=== PATIENT | female | born 2005 | race Caucasian/White ===

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

== ENCOUNTER → 2024-06-05 | Outpatient (CLI) | payer OTHER ==
[2024-06-05 13:25] LABS: HEMATOCRIT 38.3 % (36.0-47.0); HEMOGLOBIN 12.4 g/dl (12.0-15.5); MEAN CORPUSCULAR HEMOGLOBIN 27.6 pg (27.0-33.0); MEAN CORPUSCULAR HGB CONC 32.4 g/dl (32.0-36.5); MEAN CORPUSCULAR VOLUME 85.1 fl (80.0-96.0); PLATELET COUNT, AUTOMATED 338 10^3/uL (150-450); WHITE BLOOD COUNT 10.1 10^3/uL (4.0-10.0)
[2024-06-05 14:24] LABS: HEPATITIS B SURFACE ANTIGEN NEGATIVE (NEGATIVE)
[2024-06-05 14:30] LABS: GC DNA AMPLIFICATION NEGATIVE (NEGATIVE)
[2024-06-05 14:36] LABS: HIV 1&2 SCREEN NEGATIVE (NEGATIVE)
[2024-06-05 14:43] LABS: HEPATITIS C VIRUS ABY INDEX < 0.02 INDEX (<0.8)
== END ==
LOC: M PLALAB 11:32
PROVIDERS: ATTEND Obstetrics & Gynecology
DX: Z34.81 Encounter for supervision of other normal pregnancy, first trimester (principal); Z3A.00 Weeks of gestation of pregnancy not specified

== ENCOUNTER → 2024-08-13 | Outpatient (CLI) | payer OTHER | LOC: M WHC 12:21 | PROVIDERS: ATTEND Nurse Practitioner Women's Health | DX: Z34.02 Encounter for supervision of normal first pregnancy, second trimester (principal); Z3A.20 20 weeks gestation of pregnancy ==

== ENCOUNTER → 2024-09-16 | Outpatient (CLI) | payer OTHER ==
[~2024-09-16] MED LIST changes: +LEVA15HF2 INH; -LEVAINH INH
[2024-09-16 17:57] LABS: HEMATOCRIT 33.8 % (36.0-47.0); HEMOGLOBIN 10.9 g/dl (12.0-15.5); MEAN CORPUSCULAR HEMOGLOBIN 28.2 pg (27.0-33.0); MEAN CORPUSCULAR HGB CONC 32.2 g/dl (32.0-36.5); MEAN CORPUSCULAR VOLUME 87.3 fl (80.0-96.0); PLATELET COUNT, AUTOMATED 305 10^3/uL (150-450); RED BLOOD COUNT 3.87 10^6/uL (4.00-5.40); WHITE BLOOD COUNT 12.8 10^3/uL (4.0-10.0)
[2024-09-16 18:27] LABS: GLUCOSE CHALLENGE TEST 1 HOUR 88 MG/DL (LESS THAN 140)
[2024-09-16 19:02] LABS: HIV 1&2 SCREEN NEGATIVE (NEGATIVE)
[2024-09-16 19:10] LABS: HEPATITIS C VIRUS ABY INDEX 0.02 INDEX (<0.8)
[2024-09-16 21:35] LABS: GC DNA AMPLIFICATION NEGATIVE (NEGATIVE)
== END ==
LOC: M PLALAB 14:25
PROVIDERS: ATTEND Obstetrics & Gynecology
DX: Z34.92 Encounter for supervision of normal pregnancy, unspecified, second trimester (principal)

== ENCOUNTER → 2024-10-06 | Outpatient (CLI) | payer OTHER ==
[~2024-10-06] MED LIST changes: -ADV100INH INH; +ADVA1AER8 INH
== END ==
LOC: M WHC 11:58
PROVIDERS: ATTEND Obstetrics & Gynecology
DX: Z34.92 Encounter for supervision of normal pregnancy, unspecified, second trimester (principal); Z3A.28 28 weeks gestation of pregnancy

== ENCOUNTER → 2024-11-09 | Outpatient (REF) | payer OTHER | LOC: M PLALAB 14:56 | PROVIDERS: ATTEND Nurse Practitioner Family | DX: O26.899 Other specified pregnancy related conditions, unspecified trimester (principal) ==

== ENCOUNTER → 2024-12-02 | Outpatient (REF) | payer OTHER | LOC: M SFHCWAGY 12:14 | PROVIDERS: ATTEND Obstetrics & Gynecology | DX: Z36.85 Encounter for antenatal screening for Streptococcus B (principal); Z3A.36 36 weeks gestation of pregnancy ==

== ENCOUNTER → 2024-12-09 | Outpatient (CLI) | payer OTHER ==
[2024-12-09 18:13] LABS: LDH LACTATE DEHYDROGENASE 160 U/L (120-246)
[2024-12-09 18:14] LABS: HEMATOCRIT 31.6 % (36.0-47.0); HEMOGLOBIN 9.9 g/dl (12.0-15.5); MEAN CORPUSCULAR HEMOGLOBIN 25.4 pg (27.0-33.0); MEAN CORPUSCULAR HGB CONC 31.3 g/dl (32.0-36.5); MEAN CORPUSCULAR VOLUME 81.2 fl (80.0-96.0); PLATELET COUNT, AUTOMATED 291 10^3/uL (150-450); RED BLOOD COUNT 3.89 10^6/uL (4.00-5.40); WHITE BLOOD COUNT 10.8 10^3/uL (4.0-10.0)
[2024-12-09 18:15] LABS: ALT/SGPT 10 U/L (7.0-40); AST/SGOT 14 U/L (<34); BILIRUBIN,TOTAL 0.7 MG/DL (0.3-1.2); CREATININE FOR GFR 0.55 MG/DL (0.55-1.30)
[2024-12-09 18:24] LABS: URIC ACID 5.2 MG/DL (3.1-7.8)
[2024-12-09 18:32] LABS: TOTAL PROTEIN,RANDOM URINE 36.3 MG/DL (0.0-14.0)
[2024-12-09 18:37] LABS: CREATININE,RANDOM URINE 211.7 MG/DL
== END ==
LOC: M PLALAB 14:31
PROVIDERS: ATTEND Nurse Practitioner Family
DX: R03.0 Elevated blood-pressure reading, without diagnosis of hypertension (principal)

== ENCOUNTER 2024-12-28 08:05 | Inpatient (IN) | payer OTHER ==
[2024-12-28] VITALS (33 sets, daily range): BP systolic 101–147; BP diastolic 55–97
[~2024-12-28] VITALS: Ht 154.9 cm; Wt 94.4 kg
[2024-12-28] MEDS ORDERED: FLUT15.820 NARES (08:35)
[2024-12-28] MEDS ORDERED: PRENTAB9 PO (08:35)
[2024-12-28] MEDS ORDERED: CETI10CH PO (08:35)
[2024-12-28] MEDS ORDERED: FERR325T19 PO (08:35)
[2024-12-28] MEDS ORDERED: CARBOPROST TROMETHAMINE 250 MCG/ML AMP IM PRN (09:00)
[2024-12-28] MEDS ORDERED: TRANEXAMIC ACID INJection 1,000 MG in NS 100 ML IV PRN (09:00)
[2024-12-28] MEDS ORDERED: OXYTOCIN INJ 10UNITS/ML 1ML VIAL IM PRN (09:00)
[2024-12-28] MEDS ORDERED: LIDOCAINE 1% MDV 20ML VIAL INFIL PRN (09:00)
[2024-12-28 09:40] LABS: HEMATOCRIT 34.5 % (36.0-47.0); HEMOGLOBIN 10.9 g/dl (12.0-15.5); MEAN CORPUSCULAR HEMOGLOBIN 26.5 pg (27.0-33.0); MEAN CORPUSCULAR HGB CONC 31.6 g/dl (32.0-36.5); MEAN CORPUSCULAR VOLUME 83.9 fl (80.0-96.0); PLATELET COUNT, AUTOMATED 298 10^3/uL (150-450); RED BLOOD COUNT 4.11 10^6/uL (4.00-5.40); WHITE BLOOD COUNT 8.7 10^3/uL (4.0-10.0)
[2024-12-28] MEDS: LR 1,000 ML IV SCH (09:47)
[2024-12-28] MEDS: OXYTOCIN DRIP 30 UNITS in IV 1 EA IV SCH (09:47)
[2024-12-28 10:26] LABS: HEPATITIS C VIRUS ABY INDEX 0.09 INDEX (<0.8)
[2024-12-28 10:38] LABS: HIV 1&2 SCREEN NEGATIVE (NEGATIVE)
[2024-12-28] MEDS ORDERED: NALOXONE INJ 0.4MG/1ML VIAL IV PRN (13:45)
[2024-12-28] MEDS ORDERED: ONDANSETRON 4MG 2ML VIAL IV PRN (13:45)
[2024-12-28] MEDS ORDERED: diphenhydrAMINE 50MG/ML VIAL IV PRN (13:45)
[2024-12-28] MEDS ORDERED: ePHEDrine SULFATE 25 MG/5 ML(5MG/ML) SYRINGE IVP PRN (13:45)
[2024-12-28] MEDS ORDERED: EPIDURAL/PCA KEYS XX PRN (13:45)
[2024-12-28] MEDS ORDERED: LR 500 ML IV PRN (13:45)
[2024-12-28] MEDS: LACTATED RINGER'S 1000 ML IV STA (14:18)
[2024-12-28] MEDS: FENTANYL/ROPIVACAINE/NACL BAG 100 ML EPIDURAL SCH (14:21)
[2024-12-29] VITALS (10 sets, daily range): BP systolic 123–163; BP diastolic 69–88; O2SAT 81–98
[2024-12-29] MEDS: OXYTOCIN DRIP 30 UNITS in IV 1 EA IV PRN (00:49)
[2024-12-29] MEDS: METHYLERGONOVINE MALEATE 0.2MG/ML 1ML VIAL IM PRN (00:49)
[2024-12-29] MEDS ORDERED: MOM 30ML SUSPENSION UDC PO PRN (01:40)
[2024-12-29] MEDS ORDERED: RHOGAM 300MCG (1500IU) INJ IM SCH (01:40)
[2024-12-29] MEDS ORDERED: DOCUSATE SODIUM 100MG CAPSULE PO PRN (01:40)
[2024-12-29] MEDS ORDERED: ANUSOL HC CREAM 30GM TOP PRN (01:40)
[2024-12-29] MEDS ORDERED: IBUPROFEN 600MG TAB PO PRN (01:40)
[2024-12-29] MEDS ORDERED: ACETAMINOPHEN 325 MG TAB PO PRN (01:40)
[2024-12-29] MEDS: IBUPROFEN 800 MG TAB PO PRN (05:05)
[2024-12-29] MEDS: PRENATAL VITAMINS CHEWABLE TABLET PO SCH (07:44)
[2024-12-29] MEDS: ACETAMINOPHEN 500 MG TAB PO PRN (08:43)
[2024-12-30 06:00] VITALS: BP 130/73; O2SAT 98
[2024-12-30 18:00] VITALS: BP 134/78; O2SAT 96
[2024-12-30] MEDS: DIBUCAINE 1% OINTMENT 30GM TOP PRN (20:53)
[2024-12-31 06:14] VITALS: BP 128/81; O2SAT 97
[2024-12-31] MEDS: MEASLES,MUMPS,RUBELLA VACCINE INJ (MMR-II) SC.IMMUN ONE (09:00)
== END 2024-12-31 13:00 | disposition home or self-care (01) | DRG 560 ==
LOC: M LDI 08:05 → M OBS 12-29 02:52
PROVIDERS: ADMIT Advanced Practice Midwife; ATTEND Advanced Practice Midwife
PROC: 3E033VJ Introduction of Other Hormone into Peripheral Vein, Percutaneous Approach (ICD-10-PCS; 2024-12-28)
PROC: 10E0XZZ Delivery of Products of Conception, External Approach (ICD-10-PCS; principal; 2024-12-29)
PROC: 0HQ9XZZ Repair Perineum Skin, External Approach (ICD-10-PCS; 2024-12-29)
DX: O99.02 Anemia complicating childbirth (principal); D64.9 Anemia, unspecified; Z37.0 Single live birth; Z3A.40 40 weeks gestation of pregnancy; Z87.891 Personal history of nicotine dependence; O70.0 First degree perineal laceration during delivery; O66.0 Obstructed labor due to shoulder dystocia; O36.60X0 Maternal care for excessive fetal growth, unspecified trimester, not applicable or unspecified

== ENCOUNTER → 2025-06-24 | Outpatient (CLI) | payer OTHER ==
[~2025-06-24] MED LIST changes: +CETI10CH PO; +FERR325T19 PO; +FLUT15.820 NARES; +PANT40TA29 PO; +PRENTAB9 PO
== END ==
LOC: M WHC 08:06
PROVIDERS: ATTEND Registered Nurse
DX: R10.11 Right upper quadrant pain (principal); K80.20 Calculus of gallbladder without cholecystitis without obstruction

== ENCOUNTER 2025-09-01 07:13 | Day surgery (SDC) | payer OTHER ==
[~2025-09-01] VITALS: Ht 154.9 cm; Wt 80.5 kg
[~2025-09-01 07:13] MED LIST changes: +ALBU8.5H; +FLUT1BLS5; +LEXA1TAB PO; +TRI-TAB16
[2025-09-01] MEDS ORDERED: dexAMETHasone 4 MG/ML 1 ML VIAL As Ordered ONE (07:59)
[2025-09-01] MEDS ORDERED: KETOROLAC 30 MG/ML 1 ML VIAL As Ordered ONE (07:59)
[2025-09-01] MEDS ORDERED: MIDAZOLAM INJ 2 MG/2 ML VIAL As Ordered ONE (07:59)
[2025-09-01] MEDS ORDERED: ACETAMINOPHEN 1000MG/100ML IV BAG As Ordered ONE (07:59)
[2025-09-01] MEDS ORDERED: LIDOCAINE 2% 100 MG/5 ML SDV (FOR ANES.) As Ordered ONE (07:59)
[2025-09-01] MEDS ORDERED: ROCURONIUM BROMIDE 50MG/5ML VIAL As Ordered ONE (07:59)
[2025-09-01] MEDS ORDERED: ONDANSETRON 4MG/2ML VIAL As Ordered ONE (07:59)
[2025-09-01] MEDS ORDERED: SUGAMMADEX SODIUM 500 MG/5 ML VIAL As Ordered ONE (07:59)
[2025-09-01] MEDS: LR 1,000 ML IV SCH (08:09)
[2025-09-01] MEDS: ceFAZolin SOD 2 GM IV ONCE IV ONE (09:10)
[2025-09-01] MEDS ORDERED: LR 1,000 ML IV SCH (10:10)
[2025-09-01] MEDS: HYDROMORPHONE HCL 0.5 MG/0.5 ML SYRINGE IV PRN (10:44)
[2025-09-01] MEDS: ONDANSETRON 4MG/2ML VIAL IV PRN (10:44)
[2025-09-01] MEDS ORDERED: traMADol 50 MG TAB PO PRN (11:25)
[2025-09-01 12:06] VITALS: BP 137/84; TEMP 97.6; O2SAT 97
== END 2025-09-01 12:41 | disposition home or self-care (01) ==
LOC: M SDC 07:13
PROVIDERS: ATTEND Surgery
DX: K80.10 Calculus of gallbladder with chronic cholecystitis without obstruction (principal); J45.909 Unspecified asthma, uncomplicated; F17.290 Nicotine dependence, other tobacco product, uncomplicated; Z79.899 Other long term (current) drug therapy; Z79.3 Long term (current) use of hormonal contraceptives; F32.A Depression, unspecified
CPT/HCPCS: 47562; 81025; 88304; J0131; J0665; J0688; J1100; J1171; J1885; J2250; J2405; J2765; J3010